=== PATIENT | male | born 1950 | race Caucasian/White ===

== ENCOUNTER 2022-04-18 07:10 | Emergency (ER) | payer OTHER ==
[~2022-04-18] VITALS: Ht 180.3 cm; Wt 90.7 kg
[2022-04-18 07:13] VITALS: BP 143/100
--- NOTE | 2022-04-18 07:13 | NUR ---
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
[2022-04-18] MEDS ORDERED: APRESOLINE ONE (07:16)
[2022-04-18] MEDS ORDERED: MORPHINE SULFATE ONE (07:17)
[2022-04-18] MEDS ORDERED: MECLIZINE HCL ONE (07:30)
--- NOTE | 2022-04-18 07:30 | ER.PDOC ---
General Chief Complaint: Dizziness Stated Complaint: DIZZINESS Time seen by MD: 07:29 Source: patient Exam Limitations: no limitations History of Present Illness Initial Comments Dizziness for 2 days. No headache. No chest pain or shortness of breath. No fever or chills. Patient ran out of his blood pressure medication 3 days ago. Severity: moderate Decreased Ability to Stand: weak Usually: walks w/o assistance Worsened By: movement of head Allergies: Coded Allergies: No Known Allergies (Unverified , 04/18/22) Past Medical History Medical History: hypertension Surgical History: back Family History Significant Family History: no pertinent family hx Social History Smoking: non-smoker Alcohol Use: none Drug Use: none Reviewed Nursing Reviewed: Vital Signs, Abn. Noted, Nursing Assessment Review of Systems Constitutional: no symptoms reported Ears: see HPI Respiratory: no symptoms reported Cardiovascular: no symptoms reported Gastrointestinal: no symptoms reported All Other Systems: Reviewed and Negative Physical Exam General Appearance: alert, no distress EENT: nml eye inspection, PERRL, no nystagmus, nml ENT inspection, pharynx nml, TM's nml Neck: supple Respiratory: no resp distress, breath sounds nml CVS: reg rate & rhythm, heart sounds.nml Abdomen: non-tender, no organomegaly, no distention Skin: color nml, no rash, warm/dry Extremities: non-tender, nml ROM, no pedal edema Neuro/Psych: nml orientation, nml speech/cognition, nml mood/affect Cranial Nerves: nml as tested, no evidence of acute CVA Sensorimotor: nml motor, nml sensation Results/Orders Results/Orders Vital Signs Date Time Temp Pulse Resp B/P (MAP) Pulse Ox O2 Delivery O2 Flow Rate FiO2 04/18/22 08:44 98.0 62 18 136/82 (100) 96 Room Air* 0 21 04/18/22 08:15 98.0 63 18 162/105 (124) 96 Room Air* 0 21 04/18/22 07:13 98.0 63 18 04/18/22 07:13 98.0 63 18 143/100 (114) 96 Room Air* 0 21 04/18/22 07:13 98.0 63 18 96 Administered Medications Medications (Trade) Dose Ordered Sig/Dylan Route PRN Reason Start Time Stop Time Status Last Admin Dose Admin Meclizine HCl (Meclizine HCl) 25 mg STAT STAT PO 04/18/22 07:26 04/18/22 07:29 DC 04/18/22 07:32 25 MG Laboratory Tests Test 04/18/22 07:46 04/18/22 08:00 White Blood Count 5.8 10^3/uL (4.5-11.0) Red Blood Count 4.97 10^6/uL (4.50-5.90) Hemoglobin 14.8 g/dL (13.9-16.3) Hematocrit 44.7 % (37.0-53.0) Mean Corpuscular Volume 89.9 fL (78-100) Mean Corpuscular Hemoglobin 29.8 pg (26-34) Mean Corpuscular Hemoglobin Concent 33.1 g/dL (33-36.5) Red Cell Distribution Width 13.5 % (11.5-14.5) Platelet Count 151 10^3/uL (150-400) Mean Platelet Volume 10.6 fL (7.8-11.0) Neutrophils (%) (Auto) 71.4 % (41.0-85.0) Lymphocytes (%) (Auto) 19.7 % (24.0-44.0) L Monocytes (%) (Auto) 6.7 % (5.0-12.0) Neutrophils # (Auto) 4.1 10^3/uL (1.8-7.7) Lymphocytes # (Auto) 1.14 10^3/uL1 (1.0-4.8) Monocytes # (Auto) 0.4 10^3/uL (0.3-0.8) Absolute Immature Granulocyte (auto 0.02 10^3 u/L (0-2) Absolute Eosinophils (auto) 0.1 10^3/uL (0.0-0.2) Immature Granulocytes % 0.30 % (0.00-0.50) Eosinophils % 1.7 % (0.0-5.0) Basophils % 0.2 % (0.0-0.2) Basophils # 0.0 10^3/uL (0.0-0.1) Prothrombin Time 10.4 SEC (9.1-11.5) Prothrombin Time INR (Non-Therap) 1.0 Activated Partial Thromboplast Time 29.0 SEC (22.5-33.1) Sodium Level 137 mmol/L (132-145) Potassium Level 3.7 mmol/L (3.6-5.2) Chloride Level 103.0 mmol/L (96-109) Carbon Dioxide Level 28.4 mmol/L (20.0-32) Anion Gap 9.3 Blood Urea Nitrogen 17 mg/dL (7-18) Creatinine 0.90 mg/dL (0.59-1.40) Estimated GFR () 100.4 (>/=60) Est GFR (CKD-EPI)(Non-Afr French) 82.9 (>/=60) BUN/Creatinine Ratio 18.0 Glucose Level 114 mg/dL (70-110) H Calcium Level 9.0 mg/dL (8.4-10.5) Total Bilirubin 0.8 mg/dL (0.2-1.0) Aspartate Amino Transferase (AST) 20 U/L (0-35) Alanine Aminotransferase (ALT) 29 U/L (12-78) Alkaline Phosphatase 72 U/L (50-136) Total Creatine Kinase 62 U/L (39-308) Creatine Kinase MB 2.2 ng/mL (0.5-3.6) Troponin I High Sensitivity 9 ng/L (0-75) Total Protein 7.0 g/dL (6.4-8.2) Albumin 3.8 g/dL (3.4-5.0) Globulin 3.2 Albumin/Globulin Ratio 1.187 Urine Collection Type UNKNOWN Urine Color YELLOW Urine Appearance CLEAR Urine Bilirubin NEGATIVE (NEGATIVE) Urine Ketones NEGATIVE (NEGATIVE) Urine Specific [place] 1.020 (1.005-1.030) Urine pH 6.5 (4.5-8.0) Urine Protein NEGATIVE (NEGATIVE) Urine Urobilinogen 0.2 E.U./dL (0.2) Urine Nitrate NEGATIVE (NEGATIVE) Urine Leukocyte Esterase NEGATIVE (NEGATIVE) Urine Glucose (Auto)(UA) NEGATIVE (NEGATIVE) Urine Blood NEGATIVE (NEGATIVE) Progress Progress Care transferred to Dr. Isaac at 8am Isaac: assuming care of patient. Workup for vertigo/dizziness pending. There is still some tracking horizontal nystagmus, favoring positional vertigo in diagnosis. Pt is eventually able to determine that his BP med is carvedilol 12.5 mg BID; I will give one refill of that at his request. While this looks much more like vertigo than any form of stroke, pt has raised such a question, and I have recommended discussing stroke prevention measures with his PCP, as well as indicia for more urgent return. EKG/XRAY/CT/US EKG: NSR (slight TWIs in III, good RWP no ST elevations or depressions.) XRAY: chest XRAY Comments: NAD CT Comments: head CT NAD ER DEPART Departure Time of Disposition: 09:11 Disposition: 01 HOME / SELF CARE / HOMELESS Impression: Primary Impression: Vertigo, benign positional Condition: Stable Patient Instructions: Benign Positional Vertigo, Stroke Prevention, [id number], Vertigo, [id number] Referrals: PCP,UNKNOWN (PCP) PRIMARY CARE PROVIDER Duration or Time Spent with Pa: 20 min TONY LUZ MD Apr 18, 2022 07:30 PATEL ISAAC MD Apr 18, 2022 08:22
[2022-04-18] MEDS: MECLIZINE HCL PO STA (07:32)
--- NOTE | 2022-04-18 07:50 | PCM.EKG ---
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 Reading MD: Tony LUZ Measurements Intervals [place] Rate: 59 P: 49 [place]: 174 QRS: 12 QRSD: 92 T: 19 QT: 435 QTc: 431 Interpretive Statements Sinus rhythm Probable left atrial enlargement Borderline T abnormalities, anterior leads Baseline wander in lead(s) V3 No previous ECG available for comparison Electronically Signed On 04-20-2022 7:17:15 DIRECTOR OF REGULATORY AFFAIRS by Tony LUZ Please click the below link to view image of tracing.
[2022-04-18 07:55] LABS: BASOPHIL % 0.2 % (0.0-0.2); EOSINOPHIL # 0.1 10^3/uL (0.0-0.2); EOSINOPHIL % 1.7 % (0.0-5.0); LYMPHOCYTES # 1.14 10^3/uL1 (1.0-4.8); LYMPHOCYTES % 19.7 % (24.0-44.0); MEAN CORP HGB 29.8 pg (26-34); MONOCYTES # 0.4 10^3/uL (0.3-0.8); MONOCYTES % 6.7 % (5.0-12.0); NEUTROPHIL # 4.1 10^3/uL (1.8-7.7); NEUTROPHILS % 71.4 % (41.0-85.0); RED CELL DISTRIBUTION WIDTH 13.5 % (11.5-14.5)
[2022-04-18 08:00] LABS: BILIRUBIN,URINE NEGATIVE (NEGATIVE); UROBILINOGEN,URINE 0.2 E.U./dL (0.2)
[2022-04-18 08:15] VITALS: BP 162/105
[2022-04-18 08:16] LABS: CARBON DIOXIDE 28.4 mmol/L (20.0-32)
--- NOTE | 2022-04-18 08:22 | DIREP ---
PROCEDURE:CT HEAD OR BRAIN W/O CONTRAST COMPARISON:None. INDICATIONS:Dizziness TECHNIQUE:CT images were created without intravenous contrast. FINDINGS: VENTRICLES:There is mild prominence of the ventricles and cortical sulci consistent with age related involutional changes. CEREBRUM:Normal cerebral morphology with appropriate murrell white matter differentiation. CEREBELLUM:Negative. BRAINSTEM:Negative. BASAL CISTERNS:Negative. HEMORRHAGE (Vol L*W*H*.52):No MASS LESION:No ACUTE INFARCT:No SKULL:Normal. SINUSES:Mild escobar sinus mucoperiosteal thickening. OTHER:None CONCLUSION:Mild cerebral atrophy. No acute intracranial process. Dictated by: Romy Augustine M.D. on 04/18/2022 at 08:17 AM
--- NOTE | 2022-04-18 08:28 | DIREP ---
PROCEDURE:CHEST 1 VIEW COMPARISON:None. INDICATIONS:Dizziness FINDINGS: LUNGS/PLEURA:Slight airspace opacification in the left upper lobe. No effusion or pneumothorax. VASCULATURE:Normal. Unremarkable pulmonary vasculature. CARDIAC:Normal. No cardiac silhouette abnormality or cardiomegaly. MEDIASTINUM:Calcified aorta. BONES:Mild degenerative changes. OTHER:Negative. CONCLUSION:Slight airspace opacification to the left upper lobe which may represent mild pneumonia in the appropriate clinical setting. Dictated by: Romy Augustine M.D. on 04/18/2022 at 08:26 AM
[2022-04-18 08:44] VITALS: BP 136/82
== END 2022-04-18 09:22 | disposition home or self-care (01) ==
LOC: ER 07:10
DX: H81.10 Benign paroxysmal vertigo, unspecified ear (principal); I10 Essential (primary) hypertension
CPT/HCPCS: 99285; 70450; 71045; 81003; 80053; 85025; 36415; 84484; 82553; 82550; 85610; 85730; 93005; J0360; J8597